=== PATIENT | female | born 1975 | race Caucasian/White ===

== ENCOUNTER 2020-09-23 07:50 | Emergency (ER) | payer BC ==
[~2020-09-23] VITALS: Ht 160 cm; Wt 127.0 kg
[2020-09-23] MEDS ORDERED: LIPITOR 20 MG T20 M1 PO (08:02)
[2020-09-23] MEDS ORDERED: LORAZEPAM 0.50.5 MG PO (08:02)
[2020-09-23] MEDS ORDERED: ATENOLOL 100MG100 MG PO (08:02)
[2020-09-23] MEDS ORDERED: VENLAFAXINE HCL25 MG PO (08:02)
[2020-09-23] MEDS ORDERED: AUGMENTIN 875-1 EACH PO ×2 (08:57→09:37)
[2020-09-23 09:06] VITALS: BP 153/100
== END 2020-09-23 09:07 | disposition home or self-care (01) ==
LOC: M.ERS 07:50
DX: J02.0 Streptococcal pharyngitis (principal); E78.5 Hyperlipidemia, unspecified; G47.33 Obstructive sleep apnea (adult) (pediatric)